=== PATIENT | male | born 1995 | race African-American/Black ===

== ENCOUNTER 2017-08-14 18:02 | Emergency (ER) | payer OTHER ==
--- NOTE | 2017-08-14 18:22 | PDOC ---
Rapid Medical Evaluation Chief Complaint: Rash Time Seen by Provider: 08/14/17 18:18 Medical Evaluation: Allergies Allergy/AdvReac Type Severity Reaction Status Date / Time No Known Allergies Allergy Verified 08/14/17 18:15 08/14/17 18:19 I have performed a brief in-person evaluation of this patient. The patient presents with a chief complaint of: itchy rash to right arm and runny nose Pertinent physical exam findings: ? bites to rt arm I have ordered the following: none The patient will proceed to the ED for further evaluation.
[2017-08-14 18:31] VITALS: BP 141/85; PULSE 55; TEMP 98.4; BMI 24.3
--- NOTE | 2017-08-14 19:36 | PDOC ---
History of Present Illness - General Chief Complaint: Rash Stated Complaint: RASH Time Seen by Provider: 08/14/17 18:18 History Source: Patient Exam Limitations: No Limitations - History of Present Illness Initial Comments: 08/14/17 19:32 21 yr male with rash to the right elbow and axila for 1 week, pt noticed same to his groin Timing/Duration: reports: week Severity: Yes: mild Location: reports: extremities Respiratory Risk Factors: reports: no cause identified Past History - Past Medical History Allergies/Adverse Reactions: Allergies Allergy/AdvReac Type Severity Reaction Status Date / Time No Known Allergies Allergy Verified 08/14/17 18:21 Home Medications: Ambulatory Orders Albuterol Sulfate Inhaler - [Ventolin Hfa *Inhaler*] 2 inh IH Q4H PRN 12/04/12 Chlorhexidine Gluconate [Hibiclens For Decolonization -] 1 applic TP DAILY #1 bottle 08/14/17 Sulfamethoxazole/Trimethoprim [Bactrim Ds -] 1 tab PO BID #14 tablet 08/14/17 Asthma: Yes COPD: No - Immunization History Immunization Up to Date: Yes (EXCEPT FLU SHOT) - Suicide/Smoking/Psychosocial Hx Smoking Status: No Smoking History: Never smoked Have you smoked in the past 12 months: No Number of Cigarettes Smoked Daily: 0 Information on smoking cessation initiated: No Hx Alcohol Use: No Drug/Substance Use Hx: No Substance Use Type: None Review of Systems - Review of Systems Able to Perform ROS?: Yes Is the patient limited Danish proficient: No Constitutional: No: Symptoms Reported HEENTM: No: Symptoms Reported, Dental Problems Respiratory: No: Symptoms reported Cardiac (ROS): No: Symptoms Reported ABD/GI: No: Symptoms Reported : No: Symptoms Reported Musculoskeletal: No: Symptoms Reported Integumentary: Yes: Symptoms Reported *Physical Exam - Vital Signs Last Vital Signs Temp Pulse Resp BP Pulse Ox 98.4 F 55 L 16 141/85 99 08/14/17 18:16 08/14/17 18:16 08/14/17 18:16 08/14/17 18:16 08/14/17 18:16 - Physical Exam General Appearance: Yes: Nourished, Appropriately Dressed HEENT: positive: EOMI, ANGEL, Normal ENT Inspection, Normal Voice, TMs Normal, Pharynx Normal Neck: positive: Supple. negative: Tender Respiratory/Chest: positive: Lungs Clear, Normal Breath Sounds. negative: Chest Tender Cardiovascular: positive: Regular Rhythm, Regular Rate Extremity: positive: Normal Capillary Refill, Normal Inspection, Normal Range of Motion Integumentary: positive: Other (right forearm, right suprapubic area with multiple lesions scabbed abd red, some with dark centers. ) Neurologic: positive: Fully Oriented, Alert, Normal Mood/Affect, Normal Response , Motor Strength 5/5 Medical Decision Making - Medical Decision Making 08/14/17 19:34 cc: rash itchy and painful for one week spreading around no fever no chills works at [employer] with [employer]s pt has not had this in the past has a history of asthma 08/14/17 19:36 *DC/Admit/Observation/Transfer Diagnosis at time of Disposition: Skin infection - Discharge Dispostion Disposition: HOME Condition at time of disposition: Good - Prescriptions Prescriptions: Chlorhexidine Gluconate [Hibiclens For Decolonization -] 1 applic TP DAILY #1 bottle Sulfamethoxazole/Trimethoprim [Bactrim Ds -] 1 tab PO BID #14 tablet - Referrals Referrals: Lon Salinas MD [Primary Care Provider] - - Patient Instructions Additional Instructions: 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
== END 2017-08-14 20:37 | disposition home or self-care (01) ==
LOC: JERFT 18:02
DX: L08.9 Local infection of the skin and subcutaneous tissue, unspecified (principal); J45.909 Unspecified asthma, uncomplicated
CPT/HCPCS: 99281-25

== ENCOUNTER 2018-01-15 11:59 | Emergency (ER) | payer SELFPAY ==
[2018-01-15 12:05] VITALS: BP 144/74; PULSE 63; TEMP 98.1; BMI 23.6
[2018-01-15] MEDS ORDERED: FLUCONAZOLE 150 MG TABLET PO ONE (12:39)
[2018-01-15] MEDS ORDERED: FLUCONAZOLE 100 MG TABLET (UD) ONE (12:41)
--- NOTE | 2018-01-15 12:45 | PDOC ---
History of Present Illness - General Chief Complaint: Rash Stated Complaint: RASH Time Seen by Provider: 01/15/18 12:14 - History of Present Illness Initial Comments: 01/15/18 12:40 CHIEF COMPLAINT: HISTORY OF PRESENT ILLNESS: 22 yo M with no PMH presents to ED with rash to body. Patient reports that it started on his feet, then he noticed it on his groin, and over the past week it has spread over his entire body. He reports that he was seen at [facility] last week when it started and was diagnosed with "jock itch" and has been using clotrimazole cream without relief. He c/o itching but denies any pain. No recent travel or sick contacts. PAST MEDICAL HISTORY: Denies past medical history FAMILY HISTORY: Denies SOCIAL HISTORY:Denies tobacco, alcohol, illicit drug use. SURGICAL HISTORY: Denies ALLERGIES: No known drug allergies REVIEW OF SYSTEMS General/Constitutional: Denies fever or chills. Denies weakness, weight change. HEENT: Denies change in vision. Denies ear pain or discharge. Denies sore throat. Cardiovascular: Denies chest pain or shortness of breath. Respiratory: Denies cough, wheezing, or hemoptysis. Gastrointestinal: Denies nausea, vomiting, diarrhea or constipation. Denies rectal bleeding. Genitourinary: Denies dysuria, frequency, or change in urination. Musculoskeletal: Denies joint or muscle swelling or pain. Denies neck or back pain. Skin and breasts: Denies rash or easy bruising. Neurologic: Denies headache, vertigo, loss of consciousness, or loss of sensation. Psychiatric: Denies depression or anxiety. Endocrine: Denies increased thirst. Denies abnormal weight change. Hematologic/Lymphatic: Denies anemia, easy bleeding, or history of blood clots. Allergic/Immunologic: Denies hives or skin allergy. Denies latex allergy. PHYSICAL EXAM General Appearance: Well-appearing, appropriately dressed. No apparent distress , no intoxication. HEENT: EOMI, PERRLA, normal ENT inspection, normal voice, TMs normal, pharynx normal. No conjunctival pallor. No photophobia, scleral icterus. Neck: Supple. Trachea midline. No tenderness, rigidity, carotid bruit, stridor , lymphadenopathy, or thyromegaly. Respiratory/Chest: Lungs CTAB. No shortness of breath, chest tenderness, respiratory distress, accessory muscle use. No crackles, rales, rhonchi, stridor , wheezing, dullness Cardiovascular: RRR. S1, S2. No JVD, murmur, bradycardia, tachycardia. Vascular Pulses: Dorsalis-Pedis (R): 2+, Dorsalis-Pedis (L): 2+ Gastrointestinal/Abdominal: Normal bowel sounds. Abdomen soft, non-distended. No tenderness or rebound tenderness. No organomegaly, pulsatile mass, guarding , hernia, hepatomegaly, splenomegaly. Lymphatic: No adenopathy, tenderness. Musculoskeletal/Extremities: Normal inspection. FROM of all extremities, normal capillary refill. Pelvis Stable. No CVA tenderness. No tenderness to extremities, pedal edema, swelling, erythema or deformity. Integumentary: Scattered pruritic patches and plaques to entire body. Appropriate color, dry, warm. 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 Fully oriented, alert. Appropriate mood/affect. Motor strength 5/5. No appreciable EOM palsy, facial droop or sensory deficit. 01/15/18 12:46 Past History - Past Medical History Allergies/Adverse Reactions: Allergies Allergy/AdvReac Type Severity Reaction Status Date / Time No Known Allergies Allergy Verified 01/15/18 12:06 Home Medications: Ambulatory Orders Albuterol Sulfate Inhaler - [Ventolin Hfa *Inhaler*] 2 inh IH Q4H PRN 12/04/12 Chlorhexidine Gluconate [Hibiclens For Decolonization -] 1 applic TP DAILY #1 bottle 08/14/17 Sulfamethoxazole/Trimethoprim [Bactrim Ds -] 1 tab PO BID #14 tablet 08/14/17 Asthma: Yes COPD: No - Immunization History Immunization Up to Date: Yes (EXCEPT FLU SHOT) - Suicide/Smoking/Psychosocial Hx Smoking Status: No Smoking History: Never smoked Have you smoked in the past 12 months: No Number of Cigarettes Smoked Daily: 0 Hx Alcohol Use: No Drug/Substance Use Hx: No Substance Use Type: None *Physical Exam - Vital Signs Last Vital Signs Temp Pulse Resp BP Pulse Ox 98.1 F 63 16 144/74 99 01/15/18 12:03 01/15/18 12:03 01/15/18 12:03 01/15/18 12:03 01/15/18 12:03 Medical Decision Making - Medical Decision Making 01/15/18 12:49 22 yo M with no PMH presents to ED with rash to body. -po fluconazole Discussed with patient to f/u with derm if symptoms do not improve over a year. *DC/Admit/Observation/Transfer Diagnosis at time of Disposition: Tinea corporis - Discharge Dispostion Disposition: HOME Condition at time of disposition: Stable Admit: No - Referrals Referrals: Kelsea León MD [Staff Physician] - - Patient Instructions Printed Discharge Instructions: DI for Tinea Corporis Additional Instructions: As discussed, please follow up with dermatology if symptoms persist past 2-3 days If you develop painful lesions, fever, chills, vomiting, diarrhea, or any new or worsening symptoms, please return to the ER. - Post Discharge Activity
== END 2018-01-15 13:20 | disposition home or self-care (01) ==
LOC: JERFT 11:59
DX: B35.4 Tinea corporis (principal)
CPT/HCPCS: 99281-25